=== PATIENT | female | born 1980 | race American Indian/Alaskan Native ===

== ENCOUNTER 2019-01-11 03:12 | Outpatient (CLI) | payer OTHER, MEDICAID | END 2019-01-11 04:05 | LOC: EEVIPCON 03:12 → TRG 03:12 | PROVIDERS: ATTEND Obstetrics & Gynecology | DX: O47.1 False labor at or after 37 completed weeks of gestation (principal); Z3A.39 39 weeks gestation of pregnancy | CPT/HCPCS: 59025 ==

== ENCOUNTER 2019-01-14 11:30 | Inpatient (IN) | payer MEDICAID ==
[2019-01-18] MEDS ORDERED: LACTATED RINGERS 1,000 ML ONE ×2 (05:51→05:52)
[2019-01-18 06:11] LABS: Hematocrit 29.8 % (30.3-42.9); Hemoglobin 10.2 gm/dl (10.1-14.3); Mean Corpuscular HGB Conc 34 % (30-34); Mean Corpuscular Volume 95 fl (79-97); Platelet Count 193 K/mm3 (140-440); Red Blood Count 3.15 M/mm3 (3.65-5.03)
[2019-01-18] MEDS ORDERED: METOCLOPRAMIDE 10 MG/2 ML INJ IV ONE (06:22)
[2019-01-18] MEDS ORDERED: BICITRA ORAL LIQD 30ML PO ONE (06:22)
[2019-01-18] MEDS ORDERED: FAMOTIDINE 20 MG/2 ML INJ IV ONE (06:22)
[2019-01-18] MEDS ORDERED: PROMETHAZINE 25 MG RECT SUPP PR PRN (06:34)
[2019-01-18] MEDS ORDERED: NALOXONE 0.4 MG/1 ML INJ IV PRN ×2 (06:34→10:00)
[2019-01-18] MEDS ORDERED: PROMETHAZINE 25 MG TAB PO PRN (06:34)
[2019-01-18] MEDS ORDERED: HYDROmorphone 1 MG/1 ML INJ IV PRN (06:34)
[2019-01-18] MEDS ORDERED: ONDANSETRON 4 MG/2 ML INJ IV PRN (06:34)
--- NOTE | 2019-01-18 06:34 | Anesthesia Consultation ---
Anesthesia Consult and Med Hx Date of service: 01/18/19 - Airway Anesthetic Teeth Evaluation: Good ROM Head & Neck: Adequate Mental/Hyoid Distance: Adequate Mallampati Class: Class II Intubation Access Assessment: Good - Pulmonary Exam CTA: Yes - Cardiac Exam Cardiac Exam: RRR - Pre-Operative Health Status ASA Pre-Surgery Classification: ASA2 Proposed Anesthetic Plan: Spinal - Pulmonary Hx Asthma: No - Cardiovascular System Hx Hypertension: No - Central Nervous System Hx Seizures: No Hx Psychiatric Problems: No - Endocrine Hx Renal Disease: No Hx Hypothyroidism: No Hx Hyperthyroidism: No - Hematic Hx Anemia: Yes (1st delivery) Hx Sickle Cell Disease: Yes (trait) - Other Systems Hx Alcohol Use: No
--- NOTE | 2019-01-18 06:34 | Anesthesia Day of Surgery ---
Anesthesia Day of Surgery - Day of Surgery Patient Examined: Yes Patient H&P Reviewed: Yes Patient is NPO: Yes
[2019-01-18] MEDS ORDERED: OXYTOCIN 20 UNIT/1000ML DRIP 20 UNITS/1,000 ML BAG IV SCH (07:00)
[2019-01-18] MEDS ORDERED: fentaNYL-BUPIV 2 MCG/ML-0.125% 200 MCG/100 ML BAG EPIDURAL SCH (07:00)
[2019-01-18] MEDS ORDERED: LACTATED RINGERS 1,000 ML IV SCH ×2 (07:00→16:00)
[2019-01-18] MEDS ORDERED: SODIUM CHLORIDE 0.9% IRR 1,500 ML BOTTLE IR ONE (07:37)
[2019-01-18] MEDS ORDERED: WATER FOR IRRIG STERILE 1,500 ML BOTTLE IR ONE (07:37)
[2019-01-18] MEDS ORDERED: KETOROLAC 30 MG/1 ML INJ ONE (08:17)
[2019-01-18] MEDS ORDERED: ONDANSETRON 4 MG/2 ML INJ ONE (08:17)
[2019-01-18] MEDS ORDERED: DEXMEDETOMIDINE 200 MCG/2 ML VIAL IV ONE (08:17)
[2019-01-18] MEDS ORDERED: diphenhydrAMINE 50 MG/ML VIAL ONE (08:17)
--- NOTE | 2019-01-18 08:46 | Operative Report ---
Operative Report Operative Report: Date of procedure: 01/18/2019 Pre-operative diagnosis: Same Post-operative diagnosis: 36 weeks gestation Evidence of dehiscence of previous scar on sonogram Procedure name(s): Repeat low transverse section via Pfannenstiel skin incision Vacuum assisted delivery Surgeon: Dr. Person Data Review Specialist: FADIA Anesthesia: Combined spinal epidural EBL: 1 L Urine output: 500 mL of clear urine out Fluids: 800 mL of crystalloid Findings: Grossly normal fallopian tubes and ovaries bilaterally normal uterus Filmy adhesions of the uterus to the anterior abdominal wall next liveborn female weight 6 lbs. 7 oz. Apgars of 8 and 9 at one and 5 minutes Indications: Patient presents for repeat section as recommended by maternal- medicine. was recommended to be done between 34 and 35 weeks. However due to other social issues patient was not able to present for section until today. Patient did receive 2 doses of betamethasone prior to delivery. was recommended secondary to having evidence of uterine scar dehiscence on sonogram. All risks benefits and alternatives were discussed with the patient. Patient declined tubal ligation although she had previously decided she does declined at this time. Procedure: Patient was taking to the operating room. Patient was then prepped and draped in sterile fashion after anesthesia was found to be adequate. A low transverse skin incision was made with the scalpel through previous incisional scar and carried down to the underlying layer of fascia with the Bovie. The fascia was then incised in the midline and this incision was extended bilaterally with the Bovie. The superior aspect of the fascia was grasped with Kimberly clamps tented upward and dissected off of the anterior rectus muscles with the scalpel. In similar fashion the inferior aspect of the fascia was grasped with Kimberly clamps tented upward and dissected off of the anterior rectus muscles. The rectus muscles were then bluntly divided in the midline. The peritoneum was identified and entered into sharply. The Alan retractor was placed. The bladder blade was placed. The bladder flap was created using the Metzenbaum scissors. The bladder blade was replaced. A lower transverse uterine incision was made with the scalpel and extended bilaterally with the bandage scissors. Artificial rupture of membranes was performed yielding clear amniotic fluid. Kiwi vacuum was applied 1 with care to avoid the anterior fontanelle of the baby's head. The 's head was then delivered atraumatically with 1 pull of the vacuum.. The anterior shoulder and rest of infant delivered without difficulty. The umbilical cord was clamped x2. The cord was cut. The infant was then placed in sterile bassinet. The cord blood was collected. The placenta was manually extracted in its entirety. The uterus was exteriorized and cleared of all clots and debris. The uterine incision was closed using 0 Vicryl in a running locking fashion. A second imbricating layer of the same suture was then created. There was a hematoma that was forming at the right edge of the uterine incision that was suture ligated. After ligation of the hematoma there was noted to be no further expansion. The posterior cul-de-sac was copiously irrigated. The uterus was returned to the abdomen. The gutters were also irrigated. The anterior rectus muscles were reapproximated using 3-0 Vicryl. The anterior rectus fascia was reapproximated using 0 Vicryl in a running fashion. The subcuticular fat was reapproximated using 2-0 Vicryl in a running fashion. The skin was reapproximated with 4-0 Monocryl in a subcuticular stitch. The patient tolerated the procedure well. Sponge lap and needle counts were all correct x3. Patient was taken to the recovery room awake and in stable condition.
--- NOTE | 2019-01-18 08:57 | Post Anesthesia Evaluation ---
- Post Anesthesia Evaluation Patient Participated: Yes Airway Patent: Yes Stable Respiratory Function: Yes Nausea/Vomiting: No Temp > 96.8F: Yes Pain Manageable: Yes Adequeate Hydration: Yes Anesthesia Complications: No Block Receding Appropriately: Yes Patient on Ventilator: No
--- NOTE | 2019-01-18 08:59 | History and Physical Report ---
History of Present Illness Date of examination: 01/18/19 Date of admission: 01/18/19 05:13 History of present illness: Patient admitted for repeat section. Patient informed the risks of the surgery include bleeding possibly bleeding heavy enough to require blood transfusion, infection possible damage to bowel bladder ureter. Patient understands that due to her previous surgery she is an increased risks of adjacent organ damage. Patient's questions answered. Patient understands and desires to proceed. Menstrual History Regularity: regular Menses every: 28 days Duration: 5 LMP: 05/11/2018 LMP reliability: definite LMP character: normal test type: urine test Date: 10/01/2018 BC at conception: none Planned ? no EDC Calculations LMP: 02/15/2019 EDC Confirmation: 02/15/2019 Past History : 6 Term Births: 3 Premature Births: 0 Living Children: 3 Para: 3 Mult. Births: 0 Prev : 3 Prev. attempt? none Aborta: 2 Elect. Ab: 2 Spont. Ab: 0 Ectopics: 0 # 1 Delivery date: 07/2000 Weeks Gestation: 3mo? labor: no Delivery type: EAB Comments: D&C # 2 Delivery date: 02/28/2002 Weeks Gestation: 41 labor: no Delivery type: Anesthesia type: epidural Delivery location: [facility] Sex: Male weight: 7#10 Comments: failure to progress # 3 Delivery date: 03/09/2005 Weeks Gestation: 40 Delivery type: Anesthesia type: epidural Delivery location: [facility] Sex: Male weight: 9#1 Comments: repeat c/s # 4 Delivery date: 07/15/2010 Delivery type: Anesthesia type: epidural Delivery location: [facility] Infant Sex: Female weight: 9#4 # 5 Delivery date: 2011 Weeks Gestation: 28 wks Delivery type: EAB Delivery location: [place] Comments: pt states "probably wasn't legal becuase I was so far along". JARETT for records signed. Risk Factors: Smoked Tobacco Use: Never smoker Smokeless Tobacco Use: Never Passive smoke exposure: no Drug use: no HIV high-risk behavior: low risk Alcohol use: no Seatbelt use: preg-corporate counselor % Dietary Counseling: pn yes Past Medical History: Negative Past Medical History Past Surgical History: c/s d&c- hard to wake up after 2nd anesthesia Past Medical History Surgery (Non-museum educator): c/s d&c- hard to wake up after 2nd anesthesia Abnormal PAP: negative THU Exposure: negative Infertility: negative Uterine Anomaly: negative Uterine Surgery (not C/S): negative Other Gynecologic Problems: negative Family Hx: mother- diabetic. A fib, bipolar, PTSD mgm- diabetic, kidney failure Social Hx: single lives with children unemployed +marijuana, Infection History Hx of STD: syphilis HIV Risk Eval: low risk Hepatitis B Risk Eval: low risk Personal hx. of genital herpes: yes Partner hx. of genital herpes: no Rash, Viral, or Febrile illness since last LMP? no Varicella/Chicken Pox Status: Previous Disease TB Risk: no Infection History Comments: syphilis-2017 chlamydia- "twice" gonorrhea- 2017 herpes- type 2 initial outbreak 2009 Genetic History ADVANCED MATERNAL AGE Congenital Heart Defect: Mom: no Dad: no Kamari Disease: Mom: no Dad: no Thalassemia Mom: no Dad: no Neural Tube Defect Mom: no Dad: no Down's Syndrome Mom: no Dad: no Brady-Sachs Mom: no Dad: no Sickle Cell Disease/Trait Mom: yes Dad: no Hemophilia Mom: no Dad: no Muscular Dystrophy Mom: no Dad: no Cystic Fibrosis Mom: no Dad: no [place] Chorea Mom: no Dad: no Mental Retardation Mom: no Dad: no Fragile X Mom: no Dad: no Other Genetic/Chromosomal Disorder Mom: no Dad: no Child w/other defect Mom: no Dad: no Comments/Counseling: will offer otogenetics with IOB appt Enviromental Exposures Enviromental Exposures Reviewed Xray Exposure: no Medication, drug, or alcohol use since LMP: no Chemical/Other Exposure: no Exposure to Cat Liter: no Hx of Parvovirus (Fifth Disease): no Occupational Exposure to Children: none Current Allergies: No known allergies Past History Past Medical History: other (SEE HPI) Past Surgical History: other (SEE HPI) GLASS CLEANER History: other (SEE HPI) Family/Genetic History: other (SEE HPI) Social history: full code, other (SEE HPI) - Obstetrical History Expected Date of Delivery: 02/15/19 Actual Gestation: 36 Week(s) 0 Day(s) : 6 Para: 3 Hx # Term Pregnancies: 3 Number of Pregnancies: 0 Spontaneous Abortions: 0 Induced : 3 Number of Living Children: 3 Medications and Allergies Allergies Allergy/AdvReac Type Severity Reaction Status Date / Time No Known Allergies Allergy Verified 01/18/19 05:58 Home Medications Medication Instructions Recorded Confirmed Last Taken Type Docusate Sodium [Colace] 100 mg PO BID PRN #60 capsule 01/18/19 Unknown Rx Ferrous Sulfate [Feosol 325 MG tab] 325 mg PO QDAY #60 tablet 01/18/19 Unknown Rx Ibuprofen [Motrin 800 MG tab] 800 mg PO Q8HR PRN #30 tablet 01/18/19 Unknown Rx oxyCODONE /ACETAMINOPHEN [Percocet 1 tab PO Q4HR #30 tab 01/18/19 Unknown Rx 5/325] Active Meds: Active Medications Hydromorphone HCl (Dilaudid) 0.5 mg IV Q5M PRN PRN Reason: BREAK Hydromorphone HCl (Dilaudid) 0.5 mg IV Q4H PRN PRN Reason: breakthrough pain > 7/10 Oxytocin/Sodium Chloride (Pitocin/Ns 20 Unit/1000ml Drip) 20 units in 1,000 mls @ 0 mls/hr IV TITR BRYAN Lactated Ringer's (Lactated Ringers) 1,000 mls @ 2,250 mls/hr IV PREOP BRYAN Stop: 01/19/19 07:27 Last Admin: 01/18/19 06:37 Dose: 2,250 mls/hr Documented by: Fentanyl/Bupivacaine/Sodium Chlor (Fentanyl-Bupiv 2 Mcg/Ml-0.125%) 200 mcg in 100 mls @ 8 mls/hr EPIDURAL TITRATE BRYAN; Protocol Naloxone HCl (Naloxone) 0.2 mg IV Q2MIN PRN PRN Reason: Res Rate </= 8 or 02 SAT < 92% Ondansetron HCl (Zofran) 4 mg IV Q8H PRN PRN Reason: Nausea And Vomiting Promethazine HCl (Phenergan) 25 mg PO Q6H PRN PRN Reason: Nausea And Vomiting Promethazine HCl (Phenergan) 25 mg GA Q6H PRN PRN Reason: Nausea And Vomiting Sodium Chloride (Sodium Chloride Flush Syringe 10 Ml) 10 ml IV PRN NR Stop: 01/18/19 23:59 - Vital Signs Vital signs: Vital Signs Pulse BP 105 H 111/59 01/18/19 05:40 01/18/19 05:40 Temp Pulse Resp BP Pulse Ox 98.0 F 105 H 111/59 01/18/19 05:41 01/18/19 05:41 01/18/19 05:41 - Physical Exam Breasts: Positive: deferred Cardiovascular: Regular rate Lungs: Positive: Normal air movement Abdomen: Positive: normal appearance Genitourinary (Female): Positive: normal external genitalia Uterus: Positive: enlarged Extremities: Positive: edema - Obstetrical FHR: auscultation normal Uterine Contraction Pattern: Absent Results Result Diagrams: 01/18/19 06:00 Abnormal lab results 01/18/19 Range/Units 06:00 RBC 3.15 L (3.65-5.03) M/mm3 Hct 29.8 L (30.3-42.9) % RDW 13.0 L (13.2-15.2) % All other labs normal. Assessment and Plan - Patient Problems (1) Maternal care for scar from previous delivery Current Visit: Yes Status: Acute Qualifiers: Previous delivery type: low transverse Qualified Code(s): O34.211 - Maternal care for low transverse scar from previous delivery Plan to address problem: Patient's course complicated by very thin lower uterine segment seen on ultrasound. Perinatologist recommended delivery due to risks of uterine rupture. Patient informed the risks of the surgery include bleeding possibly bleeding heavy enough to require blood transfusion, infection possible damage to bowel bladder ureter. All questions answered. Patient agrees to proceed (2) Encounter for sterilization Current Visit: Yes Status: Acute Plan to address problem: Patient desires permanent sterilization. She declined temporary contraceptives. She understands the risks of the surgery include bleeding infection possible damage to bowel bladder or ureters. She understands that this surgery would make her permanently sterile. She also understands the approximate 1% failure rate. The patient understands all the above and desires to proceed. (3) Insufficient care in third trimester Current Visit: Yes Status: Acute Plan to address problem: Patient's course was complicated by history of noncompliant with office visits also patient is positive gonorrhea and Trichomonas in the history of marijuana use
[2019-01-18] MEDS ORDERED: WITCH HAZEL/ GLYCERIN PAD TP PRN (10:00)
[2019-01-18] MEDS ORDERED: LANOLIN/ZINC/DIMETHICONE (LANSINOH) 7 GM TP PRN (10:00)
[2019-01-18] MEDS: HYDROmorphone 1 MG/1 ML INJ IV PRN ×2 (11:31→21:05)
[2019-01-18] MEDS: ceFAZolin/NS 1 GM/50 ML 1 GM/50 ML BAG IV SCH ×2 (13:12→21:21)
[2019-01-18] MEDS: KETOROLAC 30 MG/1 ML INJ IV PRN (15:14)
[2019-01-18] MEDS: HYDROcodone/ACETAMINOPHEN 5-325 MG TAB PO PRN (23:08)
[2019-01-19] MEDS: KETOROLAC 30 MG/1 ML INJ IV PRN ×3 (02:57→14:20)
[2019-01-19] MEDS ORDERED: TETANUS,DIPH,PERTUSS(ACELL) VACCINE 0.5 ML SYRINGE IM ONE (06:00)
[2019-01-19] MEDS: FERROUS SULFATE 325 MG TAB PO SCH (09:51)
[2019-01-19] MEDS: HYDROcodone/ACETAMINOPHEN 5-325 MG TAB PO PRN ×2 (09:51→20:04)
--- NOTE | 2019-01-19 12:58 | Progress Note ---
Assessment and Plan - Patient Problems (1) delivery delivered Onset Date: ~01/19/19 Current Visit: Yes Status: Acute Plan to address problem: Pt doing well s/p repeat c/s She has been OOB to void no c/o anemia Doing well s/p section P: Continue pathway Advance diet and activity as tolerated Subjective - Subjective Date of service: 01/19/19 (sleeping No c/o voiced) Principal diagnosis: Day #1 s/p repeat section Patient reports: voiding normally, pain well controlled [place]: doing well Objective - Vital Signs Latest vital signs: Vital Signs Temp Pulse Resp BP BP Pulse Ox 01/19/19 08:23 98.8 F 72 18 108/55 01/19/19 00:42 98.4 F 76 20 105/57 95 01/18/19 21:00 97.8 F 61 18 110/62 98 01/18/19 16:56 97.9 F 62 18 106/48 Intake and Output 01/18/19 01/19/19 01/19/19 22:59 06:59 14:59 Intake Total 480 600 480 Output Total 2200 1700 Balance -1720 -1100 480 Intake: Oral 480 480 Intake, Free Water 600 Output: Urine 2200 1700 Indwelling Catheter 1600 Void 600 1700 Other: Total, Intake Amount 480 480 Total, Output Amount 600 700 - Exam Breasts: Present: normal Cardiovascular: Present: Regular rate Lungs: Present: Clear to auscultation Abdomen: Present: normal appearance, soft Uterus: Present: normal, fundal height at umbilicus Extremities: Present: normal Incision: Present: normal, dry, intact - Labs Labs: Abnormal lab results 01/18/19 Range/Units 20:19 Hgb 9.0 L (10.1-14.3) gm/dl Hct 27.0 L (30.3-42.9) %
[2019-01-19] MEDS: IBUPROFEN 800 MG TAB PO PRN (17:00)
[2019-01-20] MEDS: IBUPROFEN 800 MG TAB PO PRN ×2 (01:57→13:20)
[2019-01-20] MEDS ORDERED: TETANUS,DIPH,PERTUSS(ACELL) VACCINE 0.5 ML SYRINGE IM ONE (06:00)
--- NOTE | 2019-01-20 07:57 | Discharge Summary ---
Providers - Providers Date of Admission: 01/18/19 05:13 Date of discharge: 01/20/19 (pt desires d/c ) Attending physician: GEOVANI HEMPHILL Primary care physician: GEOVANI HEMPHILL Hospitalization Reason for admission: section Delivery: Procedure: repeat low transverse Episiotomy: none Laceration: none Incision: normal, dry, intact Other procedures: none complications: none Discharge diagnosis: delivery [place] baby: female Hospital course: uncomplicated repeat section Pt resting No c/o voiced VSS FF below umb Lochia scant Incision D&I H&H stable Doing well s/p c/s P: d/c today with instructions Keep natividad postop visit RX given @ d/c Condition at discharge: Good Disposition: DC-01 TO HOME OR SELFCARE - Discharge Diagnoses (1) delivery delivered Status: Acute Comment: RTO 1 week postop Plan - Discharge Medications Prescriptions: Docusate Sodium [Colace] 100 mg PO BID PRN #60 capsule PRN Reason: Constipation Ferrous Sulfate [Feosol 325 MG tab] 325 mg PO QDAY #60 tablet Ibuprofen [Motrin 800 MG tab] 800 mg PO Q8HR PRN #30 tablet PRN Reason: Pain, Moderate (4-6) oxyCODONE /ACETAMINOPHEN [Percocet 5/325] 1 tab PO Q4HR #30 tab - Provider Discharge Summary Activity: routine, no sex for 6 weeks, no heavy lifting 4 weeks, no strenuous exercise Diet: routine Instructions: routine Additional instructions: [] Smoking cessation referral if applicable(refer to patient education folder for contact #) [] Refer to [facility] Booklet Call your doctor immediately for: * Fever > 100.5 * Heavy vaginal bleeding ( >1 pad per hour) * Severe persistent headache * Shortness of breath * Reddened, hot, painful area to leg or breast * Drainage or odor from incision. * Keep incision clean and dry at all times and follow doctor's instructions regarding bathing/showering - Follow up plan Follow up: GEOVANI HEMPHILL MD [Primary Care Provider] - 7 Days (Congratulations! Please keep your scheduled postoperative visit. Take medications as prescribed. Call with concerns.)
[2019-01-20] MEDS: HYDROcodone/ACETAMINOPHEN 5-325 MG TAB PO PRN ×2 (08:33→16:35)
[2019-01-20] MEDS: FERROUS SULFATE 325 MG TAB PO SCH (09:32)
[2019-01-20 13:33] VITALS: BP 111/63
== END 2019-01-20 18:00 | disposition home or self-care (01) | DRG 765 ==
LOC: APU 01-18 05:13 → OB 01-18 10:58
PROVIDERS: ADMIT Obstetrics & Gynecology; ATTEND Obstetrics & Gynecology
PROC: 10D00Z1 Extraction of Products of Conception, Low, Open Approach (ICD-10-PCS; 2019-01-18)
PROC: 3E0234Z Introduction of Serum, Toxoid and Vaccine into Muscle, Percutaneous Approach (ICD-10-PCS; principal; 2019-01-19)
PROC: 3E0234Z Introduction of Serum, Toxoid and Vaccine into Muscle, Percutaneous Approach (ICD-10-PCS; 2019-01-19)
DX: O34.211 Maternal care for low transverse scar from previous cesarean delivery (principal); O60.14X0 Preterm labor third trimester with preterm delivery third trimester, not applicable or unspecified; Z23 Encounter for immunization; Z3A.36 36 weeks gestation of pregnancy; Z37.0 Single live birth; Z79.899 Other long term (current) drug therapy
CPT/HCPCS: 36415; 85014; 85018; 85027; 85461; 86592; 86850; 86900; 86901; 90715; 96372; G0378; A6250; J0690; J0702; J1170; J1200; J1885; J2405; J2590; J2765; J2790; J3490; J7120

== ENCOUNTER 2019-01-14 16:59 | Outpatient (CLI) | payer MEDICAID ==
[2019-01-14] MEDS ORDERED: CELESTONE SOLUSPAN IM SCH (17:11)
== END 2019-01-14 17:25 | disposition home or self-care (01) ==
LOC: EEVIPCON 16:59 → TRG 16:59
PROVIDERS: ATTEND Obstetrics & Gynecology
DX: O47.03 False labor before 37 completed weeks of gestation, third trimester (principal); O09.523 Supervision of elderly multigravida, third trimester; O99.353 Diseases of the nervous system complicating pregnancy, third trimester; G43.909 Migraine, unspecified, not intractable, without status migrainosus; Z3A.35 35 weeks gestation of pregnancy
CPT/HCPCS: 96372; J0702

== ENCOUNTER 2019-01-15 16:59 | Outpatient (CLI) | payer MEDICAID ==
[2019-01-15] MEDS ORDERED: CELESTONE SOLUSPAN IM ONE (17:35)
== END 2019-01-15 17:44 | disposition home or self-care (01) ==
LOC: TRG 16:59
PROVIDERS: ATTEND Obstetrics & Gynecology
DX: O47.03 False labor before 37 completed weeks of gestation, third trimester (principal); O09.523 Supervision of elderly multigravida, third trimester; O99.353 Diseases of the nervous system complicating pregnancy, third trimester; G43.909 Migraine, unspecified, not intractable, without status migrainosus; Z3A.35 35 weeks gestation of pregnancy
CPT/HCPCS: 96372; J0702